=== PATIENT | female | born 1945 | race Caucasian/White ===

== ENCOUNTER 2019-03-27 19:57 | Emergency (ER) | payer MEDICARE ==
[~2019-03-27] VITALS: Ht 165.1 cm; Wt 66.7 kg
[~2019-03-27 19:57] MED LIST: ASPI-1265 PO; EST1T PO; FOLI-43 PO; HCTZ25T PO; LOSA25TA96 PO; METH2.5T17 PO; METO-539 PO; MULTIVITAMIN PO; NOR5T PO; NORCO10T PO; OMEP-84 PO; PRO2.5T PO; ROSU40TA PO; TIZA-248 PO; TRAV5DRO4 OP; ZOL50T PO
--- NOTE | 2019-03-27 20:08 | NUR ---
off trauma status per dr kline
[2019-03-27 23:15] VITALS: BP 148/72
== END 2019-03-27 23:18 | disposition home or self-care (01) ==
LOC: ER 19:57
DX: S70.01XA Contusion of right hip, initial encounter (principal); I48.91 Unspecified atrial fibrillation; I10 Essential (primary) hypertension; I25.2 Old myocardial infarction; M19.90 Unspecified osteoarthritis, unspecified site; Z56.0 Unemployment, unspecified; Z88.2 Allergy status to sulfonamides; Z88.5 Allergy status to narcotic agent; Z79.82 Long term (current) use of aspirin; Z79.899 Other long term (current) drug therapy; Z79.01 Long term (current) use of anticoagulants; W01.0XXA Fall on same level from slipping, tripping and stumbling without subsequent striking against object, initial encounter; Y93.89 Activity, other specified; Y92.89 Other specified places as the place of occurrence of the external cause; Y99.9 Unspecified external cause status
CPT/HCPCS: 71045; 72192; 73502; 93005; 99284

== ENCOUNTER 2021-02-28 17:02 | Emergency (ER) | payer MEDICARE ==
[~2021-02-28] VITALS: Ht 162.6 cm; Wt 63.5 kg
[~2021-02-28 17:02] MED LIST changes: +SERT-153 PO; -TIZA-248 PO; +TIZA4TAB5 PO; -ZOL50T PO
[2021-02-28] MEDS ORDERED: HYDR-3965 PO (18:25)
[2021-02-28 18:36] VITALS: BP 127/84
== END 2021-02-28 18:37 | disposition home or self-care (01) ==
LOC: ER 17:03
DX: S09.93XA Unspecified injury of face, initial encounter (principal); S03.2XXA Dislocation of tooth, initial encounter; S60.222A Contusion of left hand, initial encounter; I48.91 Unspecified atrial fibrillation; I10 Essential (primary) hypertension; I25.2 Old myocardial infarction; M19.90 Unspecified osteoarthritis, unspecified site; Z56.0 Unemployment, unspecified; Z88.2 Allergy status to sulfonamides; Z88.5 Allergy status to narcotic agent; Z79.82 Long term (current) use of aspirin; Z79.899 Other long term (current) drug therapy; W19.XXXA Unspecified fall, initial encounter; Y93.89 Activity, other specified; Y92.89 Other specified places as the place of occurrence of the external cause; Y99.8 Other external cause status
CPT/HCPCS: 70450; 70486; 72125; 73110; 99285

== ENCOUNTER 2022-02-06 08:43 | Emergency (ER) | payer MEDICARE ==
[~2022-02-06] VITALS: Ht 162.6 cm; Wt 65.5 kg
[~2022-02-06 08:43] MED LIST changes: +AMLO2.5T5 PO; +APIX5TAB3 PO; -ASPI-1265 PO; +BIMA2.5D EACHEYE; +BRIM5DRO2 EACHEYE; +CEFD300C3 PO; +DESV25TA2 PO; +DEXA2TAB PO; +DULO60CA65 PO; -EST1T PO; +EZET10TA48 PO; -FOLI-43 PO; -HCTZ25T PO; +HYDR-3972 PO; -LOSA25TA96 PO; -METH2.5T17 PO; +METO-384 PO; -METO-539 PO; -MULTIVITAMIN PO; -NOR5T PO; -NORCO10T PO; -OMEP-84 PO; +POTA-207 PO; -PRO2.5T PO; -ROSU40TA PO; +ROSU40TA22 PO; -SERT-153 PO; -TIZA4TAB5 PO; -TRAV5DRO4 OP; +TRAZ-256 PO
[2022-02-06] MEDS ORDERED: HYDROcodone/acetaminophen 5mg/325mg tablet PO ONE (09:45)
[2022-02-06] MEDS ORDERED: orphenadrine citrate 60mg/2ml inj. IM ONE (09:45)
[2022-02-06] MEDS ORDERED: CYCL-394 PO (10:42)
[2022-02-06] MEDS ORDERED: TRAM1TAB7 PO ×2 (10:42→10:47)
[2022-02-06 10:45] VITALS: BP 134/80
== END 2022-02-06 10:55 | disposition home or self-care (01) ==
LOC: ER 08:44
DX: S39.012A Strain of muscle, fascia and tendon of lower back, initial encounter (principal); M79.604 Pain in right leg; M54.89 Other dorsalgia; R06.02 Shortness of breath; I48.91 Unspecified atrial fibrillation; I10 Essential (primary) hypertension; I25.2 Old myocardial infarction; M19.90 Unspecified osteoarthritis, unspecified site; Z56.0 Unemployment, unspecified; Z88.2 Allergy status to sulfonamides; Z88.5 Allergy status to narcotic agent; Z79.2 Long term (current) use of antibiotics; Z79.899 Other long term (current) drug therapy; X58.XXXA Exposure to other specified factors, initial encounter; Y93.89 Activity, other specified; Y92.89 Other specified places as the place of occurrence of the external cause; Y99.8 Other external cause status
CPT/HCPCS: 72100; 96372; 99283; J2360